=== PATIENT | male | born 1975 | race Caucasian/White ===

== ENCOUNTER 2017-07-31 13:36 | Emergency (ER) | payer OTHER ==
[~2017-07-31] VITALS: Ht 190.5 cm; Wt 96.0 kg
[2017-07-31 13:43] VITALS: TEMP 36.8; Ht 190.5 cm; Wt 96.0 kg
[2017-07-31] MEDS ORDERED: KETOROLAC TROMETHAMINE 30 MG/ML VIAL IV STA (14:19)
[2017-07-31] MEDS ORDERED: ONDANSETRON INJ 2 MG/ML 2 ML VIAL IV STA (14:19)
[2017-07-31] MEDS ORDERED: MoRPHine SULFATE 10 MG/ML CARP/VIAL IV STA (14:19)
[2017-07-31] MEDS ORDERED: PRED10TA PO (14:48)
[2017-07-31 14:52] LABS: BASO % 0.1 %; BASO ABS # 0.01 K/uL (0-0.2); EOS % 0.2 %; EOS ABS # 0.02 K/uL (0-0.5); HEMOGLOBIN 16.7 g/dL (14.0-18.0); IG# 0.04 K/uL (0.00-0.02); LYMPH % 7.1 %; LYMPH ABS # 0.74 K/uL (1.2-3.4); MEAN CELL VOLUME 89.7 fL (80-100); MEAN CORPUSCULAR HEMOGLOBIN 31.9 pg (25-34); MEAN CORPUSCULAR HGB CONC 35.5 g/dl (32-36); MEAN PLATELET VOLUME 10.7 fL (7.4-10.4); MONO % 1.7 %; MONO ABS # 0.18 K/uL (0.11-0.59); NEUT % 90.5 %; NEUT ABS # 9.42 K/uL (1.4-6.5); PLATELET COUNT 203 K/uL (130-400); RED CELL DISTRIBUTION WIDTH CV 12.8 % (11.5-14.5); RED CELL DISTRIBUTION WIDTH SD 41.5 fL (36.4-46.3); WHITE BLOOD COUNT 10.41 K/uL (4.8-10.8)
[2017-07-31 15:10] LABS: CALCIUM 9.8 mg/dl (8.5-10.1); CREATININE 0.97 mg/dl (0.60-1.40); POTASSIUM 4.4 mmol/L (3.5-5.1)
--- NOTE | 2017-07-31 15:20 | DIAGNOSTIC IMAGING REPORT ---
LUMBAR SPINE CT CT DOSE: 581.57 mGycm HISTORY: Low back pain. Bilat lumbar radiculitis TECHNIQUE: Multiaxial CT images of the lumbar spine were performed and reformatted in the sagittal and coronal plane without the use of contrast. A dose lowering technique was utilized adhering to the principles of ALARA. COMPARISON: None. FINDINGS: No acute fractures. No subluxation. Paraspinal soft tissues are unremarkable. Disc spaces are preserved. There are metallic coils in the region of the right internal iliac vessels. Deformity at the right sacroiliac joint may be due to old trauma. Small focal central disc protrusion at L4-L5. L5 is demonstrated to be a transitional vertebra with partial sacralization on the right and pseudarthrosis with the sacrum. IMPRESSION: 1. No acute fracture or subluxation within the lumbar spine. 2. Small focal central disc protrusion at L4-L5 resulting in mild central canal narrowing. Electronically signed by: Fredis Sullivan M.D. 07/31/2017 3:19 PM Dictated Date/Time: 07/31/2017 3:14 PM
[2017-07-31] MEDS ORDERED: HYDROmorphone INJ 1 MG/ML SYR IV STA (15:44)
[2017-07-31] MEDS ORDERED: OXYC1TAB3 PO (16:50)
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
[2017-07-31 17:10] VITALS: BP 103/80; PULSE 60; O2SAT 93
== END 2017-07-31 17:06 | disposition home or self-care (01) ==
LOC: C.EDB 13:38 → C.EDD 17:06
DX: M51.16 Intervertebral disc disorders with radiculopathy, lumbar region (principal)